=== PATIENT | female | born 1970 ===

== ENCOUNTER 2025-01-08 09:54 | Day surgery (SDC) | payer OTHER ==
[2025-01-01 14:01] VITALS: BP 102/63
[~2025-01-08] VITALS: Ht 157.5 cm; Wt 67.1 kg
[~2025-01-08 09:54] MED LIST: SYNTHROID112 MCG PO; ZESTRIL2.5 MG PO
[2025-01-08] MEDS ORDERED: POVIDONE-IODINE 118 ML BOTT TOP ONE ×2 (13:31→14:15)
[2025-01-08] MEDS ORDERED: LIDOCAINE HCL 1%/EPINEPHRINE 20ML VIAL IJ ONE (13:31)
[2025-01-08] MEDS ORDERED: HEMOSTATIC MATRIX 1 KIT KIT TOP ONE ×2 (13:31→14:15)
[2025-01-08] MEDS ORDERED: BUPIVACAINE HCL/MPF 0.5% 30ML VIAL ONE (13:31)
[2025-01-08] MEDS ORDERED: DIBUCAINE 30 GM TUBE ONE (13:31)
[2025-01-08] MEDS ORDERED: METRONIDAZOLE/SODIUM CHLORIDE 500 MG/100 ML PIGGYBACK IV ONE ×2 (13:37→14:15)
[2025-01-08] MEDS ORDERED: BUPIVACAINE LIPOSOME/PF 266 MG/20 ML VIAL IJ ONE ×2 (13:43→14:15)
[2025-01-08] MEDS ORDERED: DIBUCAINE 30 GM TUBE RECTAL ONE (14:15)
[2025-01-08] MEDS ORDERED: TRIAMCINOLONE ACETONIDE 40 MG/ML VIAL ONE (14:33)
== END 2025-01-08 19:00 | disposition home or self-care (01) ==
LOC: CIR.AMB 09:54
PROVIDERS: ATTEND Colon & Rectal Surgery
DX: K64.2 Third degree hemorrhoids (principal); K64.4 Residual hemorrhoidal skin tags; L91.0 Hypertrophic scar; Z91.013 Allergy to seafood; I10 Essential (primary) hypertension; J45.909 Unspecified asthma, uncomplicated; E03.8 Other specified hypothyroidism; F41.0 Panic disorder [episodic paroxysmal anxiety]